=== PATIENT | male | born 2000 | race Caucasian/White ===

== ENCOUNTER 2023-09-23 16:38 | Emergency (ER) | payer SELFPAY ==
[~2023-09-23] VITALS: Ht 167.6 cm; Wt 73.0 kg
[2023-09-23 16:45] VITALS: O2SAT 99
[2023-09-23 18:45] LABS: HEMATOCRIT. 48.6 % (42.0-52.0); MEAN CORPUSCULAR HEMOGLOBIN 31.4 pg (28.0-32.0); MEAN CORPUSCULAR HGB CONC 34.9 g/dL (31.0-37.0); MEAN CORPUSCULAR VOLUME 89.9 fL (80.0-94.0); RED BLOOD CELL COUNT 5.41 mill/uL (4.7-6.1); RED CELL DISTRIBUTION WIDTH 12.5 % (11.6-14.6)
[2023-09-23 18:48] LABS: DIFFERENTIAL COMMENT 1
[2023-09-23 18:58] LABS: CHLORIDE 102 mEq/L (98-107); POTASSIUM 3.6 mEq/L (3.5-5.1); SODIUM 138 mEq/L (136-145)
[2023-09-23 18:59] LABS: CARBON DIOXIDE 26 mEq/L (21-32)
[2023-09-23 19:00] LABS: CALCIUM 10.1 mg/dL (8.7-10.4)
[2023-09-23 19:04] LABS: CREATININE 1.1 mg/dL (0.6-1.3); GLUCOSE 131 mg/dL (70-105)
[2023-09-23 19:05] LABS: UREA NITROGEN BLOOD 11 mg/dL (9-23)
[2023-09-23 19:08] LABS: ETHANOL BLOOD < 10 mg/dL (<10)
[2023-09-23 19:10] LABS: PLATELET 220 x1000/uL (130-400)
[2023-09-23 19:11] VITALS: BP 126/77; PULSE 61; RESP 12; TEMP 99.1
[2023-09-23 19:11] LABS: MEAN PLATELET VOLUME 8.1 fl (7.4-10.4)
[2023-09-23 19:12] LABS: PLATELET ESTIMATE NORMAL
== END 2023-09-23 20:55 | disposition home or self-care (01) ==
LOC: ER 16:38
DX: R56.9 Unspecified convulsions (principal)
CPT/HCPCS: 36415; 80048; 80320; 85025; 99283; G0480